=== PATIENT | male | born 1965 | race African-American/Black ===

== ENCOUNTER 2018-07-14 12:40 | Emergency (ER) | payer MEDICAID ==
[~2018-07-14] VITALS: Ht 182.9 cm; Wt 105.0 kg
[2018-07-14 12:50] VITALS: BP 165/113
[2018-07-14] MEDS ORDERED: FLUORESCEIN SODIUM 1MG/STRIP LEFTEYE ONE (14:45)
[2018-07-14] MEDS ORDERED: TETRACAINE 0.5% OPHTH DROPS 4ML LEFTEYE ONE (14:45)
== END 2018-07-14 15:28 | disposition home or self-care (01) ==
LOC: ER 14:16
DX: H00.014 Hordeolum externum left upper eyelid (principal); F17.200 Nicotine dependence, unspecified, uncomplicated; F12.10 Cannabis abuse, uncomplicated; I10 Essential (primary) hypertension
CPT/HCPCS: 99283

== ENCOUNTER 2022-02-11 08:30 | Inpatient (IN) | payer MEDICAID, OTHER ==
[~2022-02-11] VITALS: Ht 182.9 cm; Wt 94.1 kg
[2022-02-11] MEDS ORDERED: IPRATROPIUM BROMIDE (0.02%) 0.5MG/2.5ML NEB HHN STA (08:59)
[2022-02-11] MEDS ORDERED: ALBUTEROL (0.083%) 2.5MG/3ML NEB HHN STA (08:59)
[2022-02-11] MEDS ORDERED: IPRATROPIUM/ALBUTEROL 0.5-3(2.5)MG/3ML NEB HHN ONE (09:00)
[2022-02-11 09:20] LABS: BASOPHILS % 0.4 % (0.0-2.0); EOSINOPHILS % 1.2 % (0.0-5.0); HEMATOCRIT. 50.6 % (42.0-52.0); HEMOGLOBIN. 16.7 g/dL (14.0-18.0); MEAN CORPUSCULAR HEMOGLOBIN 31.2 pg (28.0-32.0); MEAN CORPUSCULAR VOLUME 94.4 fL (80.0-94.0); MEAN PLATELET VOLUME 10.2 fl (7.4-10.4); MONOCYTES % 9.9 % (2.0-8.0); NEUTROPHILS % 58.5 % (40.0-76.0); PLATELET 202 x1000/uL (130-400); RED BLOOD CELL COUNT 5.36 mill/uL (4.7-6.1); RED CELL DISTRIBUTION WIDTH 14.4 % (11.6-14.6)
[2022-02-11 09:29] LABS: BG BASE EXCESS -4.8 mmol/L (-2.0-2.0); BG CARBOXYHEMOGLOBIN 2.9 % (0.5-1.5); BG DEOXYHEMOGLOBIN 8.6 % (0.0-5.0); BG HCO3 ACT 19.6 mmol/L (22.0-26.0); BG METHEMOGLOBIN 0.3 % (0.0-1.5); BG OXYGEN SATURATION 91.1 % (92.0-98.5); BG OXYHEMOGLOBIN 88.2 % (94.0-97.0); BG PCO2 35.3 mmHg (35.0-45.0); BG PH 7.362 (7.350-7.450); BG PO2 64.7 mmHg (75.0-100.0); BG SAMPLE SITE RIGHT RADIAL; BG TOTAL HEMOGLOBIN 18.1 g/dL (12.0-18.0); BG VENT MODE MASK - SIMPLE
[2022-02-11 09:31] LABS: CHLORIDE 112 mEq/L (98-107)
[2022-02-11] MEDS ORDERED: FUROSEMIDE 20MG/2ML VIAL IVP NR (10:30)
[2022-02-11] MEDS ORDERED: CEFTRIAXONE 1 G PREMIX 50 ML IV SCH (10:30)
[2022-02-11 20:25] VITALS: BP 110/85
[2022-02-11] MEDS ORDERED: ACETAMINOPHEN 325MG TABLET PO PRN (21:15)
[2022-02-11] MEDS: GABAPENTIN 300MG CAPSULE PO SCH (22:12)
[2022-02-11] MEDS: CARVEDILOL 3.125 MG TABLET PO SCH (22:13)
[2022-02-12] VITALS (7 sets, daily range): BP systolic 103–172; BP diastolic 78–121
[2022-02-12] MEDS ORDERED: CLONIDINE 0.2MG TABLET PO PRN (05:15)
[2022-02-12] MEDS: ASPIRIN 81MG TABLET PO SCH (09:43)
[2022-02-12] MEDS: ENOXAPARIN 40MG/0.4ML SYR SUBCUT SCH (09:43)
[2022-02-12] MEDS: CARVEDILOL 3.125 MG TABLET PO SCH ×2 (09:44→17:27)
[2022-02-12] MEDS: LISINOPRIL 20MG TABLET PO SCH (09:45)
[2022-02-12] MEDS: FUROSEMIDE 40MG/4ML VIAL IVP SCH ×2 (09:45→20:00)
[2022-02-12] MEDS: GABAPENTIN 300MG CAPSULE PO SCH ×3 (09:45→18:33)
[2022-02-12] MEDS ORDERED: VANCOMYCIN 1500MG in DEXTROSE 5% WATER 250ML IV SCH (12:20)
[2022-02-12 16:34] LABS: *AMPHETAMINES SCREEN URINE NEGATIVE (NEGATIVE); *BARBITURATES SCREEN URINE NEGATIVE (NEGATIVE); *BENZODIAZEPINES SCREEN URINE NEGATIVE (NEGATIVE); *COCAINE SCREEN URINE PRESUMTIVE POSITIVE (NEGATIVE); CANNABINOID URINE SCREEN NEGATIVE (NEGATIVE); METHADONE URINE SCREEN NEGATIVE (NEGATIVE); OPIATES URINE SCREEN NEGATIVE (NEGATIVE); PHENCYCLIDINE URINE SCREEN NEGATIVE (NEGATIVE)
[2022-02-12] MEDS: LEVOFLOXACIN 500MG PREMIX 100 ML IV SCH (17:27)
[2022-02-12] MEDS ORDERED: VANCOMYCIN 750MG PMX (XELLIA) 150 ML IV SCH (21:00)
[2022-02-12] MEDS: BUDESONIDE 0.5MG/2ML NEB HHN SCH (21:26)
[2022-02-12] MEDS: IPRATROPIUM/ALBUTEROL 0.5-3(2.5)MG/3ML NEB HHN SCH (21:26)
[2022-02-13] VITALS: BP 115/76
[2022-02-13] MEDS: IPRATROPIUM/ALBUTEROL 0.5-3(2.5)MG/3ML NEB HHN SCH ×3 (01:31→13:48)
[2022-02-13 04:00] VITALS: BP 105/74
[2022-02-13] MEDS ORDERED: VANCOMYCIN 1G PREMIX 200 ML IV SCH (04:00)
[2022-02-13] MEDS ORDERED: VANCOMYCIN 750MG PREMIX 150 ML IV SCH (04:00)
[2022-02-13 07:03] LABS: CHLORIDE 104 mEq/L (98-107)
[2022-02-13 07:04] LABS: BASOPHILS % 0.7 % (0.0-2.0); EOSINOPHILS % 1.9 % (0.0-5.0); HEMATOCRIT. 48.3 % (42.0-52.0); HEMOGLOBIN. 16.4 g/dL (14.0-18.0); LYMPHOCYTES % 43.1 % (20.0-50.0); MEAN CORPUSCULAR HEMOGLOBIN 31.5 pg (28.0-32.0); MEAN CORPUSCULAR VOLUME 92.9 fL (80.0-94.0); MEAN PLATELET VOLUME 10.5 fl (7.4-10.4); MONOCYTES % 14.1 % (2.0-8.0); NEUTROPHILS % 40.2 % (40.0-76.0); PLATELET 177 x1000/uL (130-400); RED CELL DISTRIBUTION WIDTH 13.9 % (11.6-14.6)
[2022-02-13 08:00] VITALS: BP 131/95
[2022-02-13] MEDS: BUDESONIDE 0.5MG/2ML NEB HHN SCH (08:23)
[2022-02-13] MEDS: CARVEDILOL 3.125 MG TABLET PO SCH (08:43)
[2022-02-13] MEDS ORDERED: AMLODIPINE 2.5MG TABLET PO SCH (09:00)
[2022-02-13] MEDS: FUROSEMIDE 40MG/4ML VIAL IVP SCH (09:06)
[2022-02-13] MEDS: GABAPENTIN 300MG CAPSULE PO SCH ×2 (09:06→12:45)
[2022-02-13] MEDS: ASPIRIN 81MG TABLET PO SCH (09:06)
[2022-02-13] MEDS: LISINOPRIL 20MG TABLET PO SCH (09:06)
[2022-02-13] MEDS: ENOXAPARIN 40MG/0.4ML SYR SUBCUT SCH (09:07)
[2022-02-13 12:00] VITALS: BP 120/89
[2022-02-13] MEDS: LEVOFLOXACIN 500MG PREMIX 100 ML IV SCH (12:45)
[2022-02-13] MEDS ORDERED: LOSA50TA41 MT (14:15)
[2022-02-13] MEDS ORDERED: CARV6.2548 MT (14:15)
[2022-02-13] MEDS ORDERED: FURO-151 MT (14:16)
[2022-02-13] MEDS ORDERED: ALBU18HF2 IH (14:16)
[2022-02-13] MEDS ORDERED: FLUT1DIS3 INH (14:16)
[2022-02-13 15:30] VITALS: BP 140/99
[2022-02-13 16:00] VITALS: BP 140/99
[2022-02-13] MEDS ORDERED: VANCOMYCIN 1.25GM PMX (XELLIA) 250 ML IV SCH (18:00)
== END 2022-02-13 15:50 | disposition home or self-care (01) | DRG 194 ==
LOC: ER 10:56 → 7EST 15:49 → EDBEDREQ 15:53 → EDBEDREQSVC 15:53 → EDBEDREQTM 15:53 → ENRESERV 17:35
PROVIDERS: ADMIT Internal Medicine; ATTEND Internal Medicine
DX: I11.0 Hypertensive heart disease with heart failure (principal); J96.01 Acute respiratory failure with hypoxia; N17.0 Acute kidney failure with tubular necrosis; I50.21 Acute systolic (congestive) heart failure; Z20.822 Contact with and (suspected) exposure to COVID-19; I16.0 Hypertensive urgency; E87.8 Other disorders of electrolyte and fluid balance, not elsewhere classified; I49.1 Atrial premature depolarization; J44.9 Chronic obstructive pulmonary disease, unspecified; F17.210 Nicotine dependence, cigarettes, uncomplicated; F14.90 Cocaine use, unspecified, uncomplicated; F12.90 Cannabis use, unspecified, uncomplicated
CPT/HCPCS: 36415; 36600; 71045; 78582; 80048; 80053; 80305; 82375; 82805; 83735; 83880; 84484; 85025; 87426; 93005; 93306; 94640; 94660; 99285; A9558; C9803; J0696; J1650; J1940; J1956; J3370; J7060; J7626

== ENCOUNTER 2025-05-19 01:25 | Emergency (ER) | payer OTHER ==
[~2025-05-19] VITALS: Ht 182.9 cm; Wt 98.0 kg
[~2025-05-19 01:25] MED LIST: ALBU18HF2 IH; ASPI-1160 PO; AZIT250T12 PO; BUME2TAB7 MT; CARV6.2548 MT; FLUT1DIS3 INH; FURO-151 MT; LOSA50TA41 MT; METH4TAB95 MT; NITR0.4T49 SL
[2025-05-19 01:29] VITALS: O2SAT 98
[2025-05-19 02:36] LABS: BASOPHILS % 0.4 % (0.0-2.0); EOSINOPHILS % 0.1 % (0.0-5.0); HEMATOCRIT. 56.9 % (42.0-52.0); HEMOGLOBIN. 17.5 g/dL (14.0-18.0); LYMPHOCYTES % 14.0 % (20.0-50.0); MONOCYTES % 11.0 % (2.0-8.0); NEUTROPHILS % 74.5 % (40.0-76.0); RED BLOOD CELL COUNT 6.05 mill/uL (4.7-6.1); RED CELL DISTRIBUTION WIDTH 16.2 % (11.6-14.6)
[2025-05-19 02:50] LABS: TROPONIN I HIGH SENSITIVITY 52 ng/L (3.0-53)
[2025-05-19 02:52] LABS: MEAN PLATELET VOLUME 10.3 fl (7.4-10.4)
[2025-05-19 02:54] LABS: PLATELET 179 x1000/uL (130-400)
[2025-05-19 03:17] LABS: UREA NITROGEN BLOOD 14 mg/dL (9-23)
[2025-05-19 03:18] LABS: ETHANOL BLOOD < 10 mg/dL (<10)
[2025-05-19 03:23] LABS: CREATININE 1.9 mg/dL (0.6-1.3)
[2025-05-19] MEDS: DEXTROSE 50% WATER 50ML SYRINGE IV ONE (03:40)
[2025-05-19 05:11] LABS: CLARITY URINE CLOUDY (CLEAR); COLOR URINE DARK YELLOW (YELLOW); GLUCOSE URINE 2+ (NEGATIVE); KETONES URINE NEGATIVE (NEGATIVE); LEUKOCYTE ESTERASE URINE TRACE (NEGATIVE); NITRITE URINE POSITIVE (NEGATIVE); OCCULT BLOOD URINE 2+ (NEGATIVE); PH URINE 5.0 (4.5-8.0); PROTEIN URINE 2+ (NEGATIVE); SPECIFIC GRAVITY URINE 1.021 (1.005-1.030); UROBILINOGEN URINE 1.0 E.U./dL (0.2-1.0)
[2025-05-19 05:34] LABS: *AMPHETAMINES SCREEN URINE NEGATIVE (NEGATIVE); *BENZODIAZEPINES SCREEN URINE NEGATIVE (NEGATIVE)
[2025-05-19 05:35] LABS: *BARBITURATES SCREEN URINE NEGATIVE (NEGATIVE); *COCAINE SCREEN URINE PRESUMPTIVE POSITIVE (NEGATIVE); METHADONE URINE SCREEN NEGATIVE (NEGATIVE); OPIATES URINE SCREEN NEGATIVE (NEGATIVE)
[2025-05-19 05:36] LABS: CANNABINOID URINE SCREEN PRESUMPTIVE POSITIVE (NEGATIVE); ECSTASY MDMA SCREEN URINE NEGATIVE (NEGATIVE); PHENCYCLIDINE URINE SCREEN NEGATIVE (NEGATIVE)
[2025-05-19 05:47] LABS: BACTERIA URINE 3+
[2025-05-19 05:52] LABS: SQUAMOUS EPITHELIAL CELL URINE 1+ /lpf (RARE/1+)
[2025-05-19 05:59] LABS: WAXY CASTS URINE 0-5 /lpf
[2025-05-19 06:00] LABS: HYALINE CASTS URINE 0-5 /lpf
[2025-05-19 06:12] LABS: PHOSPHORUS 5.2 mg/dL (2.5-4.9)
[2025-05-19] MEDS: SODIUM CHLORIDE 0.9% 500 ML IV ONE (07:24)
[2025-05-19] MEDS: ASPIRIN 325MG EC TABLET PO NR (07:24)
[2025-05-19 07:35] VITALS: BP 129/99; PULSE 99; RESP 16; O2SAT 95
== END 2025-05-19 08:05 | disposition short-term general hospital (02) ==
LOC: ER 01:38 → EDBEDREQ 05:10 → EDBEDREQTM 05:10 → ER 08:05 → CMPBEDREQ 05-21 10:33
DX: E86.0 Dehydration (principal); E16.2 Hypoglycemia, unspecified; F14.90 Cocaine use, unspecified, uncomplicated; I50.9 Heart failure, unspecified; Z79.82 Long term (current) use of aspirin; Z79.51 Long term (current) use of inhaled steroids; Z79.899 Other long term (current) drug therapy
CPT/HCPCS: 80305; 80048; 81003; 80320; 82962; 83880; 83735; 84100; 85025; 84484; 36415; 71045; 93005; 96374; 99285; A4615; 96372; G0480